=== PATIENT | male | born 1955 | race Caucasian/White ===

== ENCOUNTER 2020-05-23 06:22 | Day surgery (SDC) | payer OTHER, BC ==
[~2020-05-23] VITALS: Ht 180.3 cm; Wt 83.4 kg
[~2020-05-23 06:22] MED LIST: OMEP20ER PO
--- NOTE | 2020-05-23 06:42 | NUR ---
History, Chart, Medications and Allergies reviewed before start of procedure. Patient states he has not had anything to eat or drink since midnight. , Belén, here with patient.
--- NOTE | 2020-05-23 08:42 | NUR ---
0835- VSS. NO C/O. AT BEDSIDE. CLEAR OCCLUSIVE DRESSING OVER GAUZE AND STERI STRIPS DRSG TO RIGHT UPPER BACK CLEAN, DRY AND INTACT WITH NO VISIBLE DRAINAGE, SWELLING OR ERYTHEMA NOTED. TOLERATING PO FLUIDS. Discharge instructions reviewed with patient. Patient verbalizes understanding. Copy given to patient to take home. to drive home.
== END 2020-05-23 08:45 | disposition home or self-care (01) ==
LOC: ORSCMMR 06:22 → ORD 07:30 → ORSCMMR 07:30
PROVIDERS: Surgery
PROC: 0JB70ZZ Excision of Back Subcutaneous Tissue and Fascia, Open Approach (ICD-10-PCS; principal; 2020-05-23 07:30)
DX: R22.2 Localized swelling, mass and lump, trunk (principal); I10 Essential (primary) hypertension; Z79.899 Other long term (current) drug therapy
CPT/HCPCS: 88304; J0690; J7120

== ENCOUNTER 2020-09-23 11:03 | Day surgery (SDC) | payer MEDICARE ==
[~2020-09-23] VITALS: Ht 180.3 cm; Wt 83.0 kg
[2020-09-23] MEDS ORDERED: ASPI81CH PO (11:33)
[2020-09-23] MEDS ORDERED: ATOR20 PO (11:33)
[2020-09-23] MEDS ORDERED: METO25 PO (11:34)
[2020-09-23] MEDS ORDERED: OMEP20ER PO (11:35)
--- NOTE | 2020-09-23 14:45 | NUR ---
pt arrived to [facility] 6 via bed, awake a/ox3, pleasant and cooperative with care, states he feels good, tr band site in place to right wrist, some blood there with hand off, but just a small amount and not actively bleeding, no bruising noted, v.s. stable. oriented to room layout and call system call light in reach.
--- NOTE | 2020-09-23 18:32 | NUR ---
at second check there was some bleeding, added 2 mls of air, bleeding stopped, will continue to monitor, v.s. have remained stable. no c.p. reported. Dr. Garnica in to see him, will discharge in am. call light in reach.
--- NOTE | 2020-09-24 05:42 | NUR ---
SHIFT SUMMARY PT A&O X 4; PLEASANT & COMPLIANT W/ CARE; VSS; DENIES CHEST PAIN; O2 SATS >93 ON RA; TR BAND REOMVED FROM R RADIAL SITE; APPROXIMATELY @ 2330; SMALL AMOUNT OF BLEEDING NOTED; CLEANED AND TEGADERM PLACED; ARM BOARD IN PLACE TO RESTRICT MOVEMENT; DIGITS WARM TO TOUCH W/ FULL ROM; PT EDUCATED ON NOT USING ARM; PT INDEPENDENT IN ROOM FOR BRP; NO DISTRESS NOTED T/O SHIFT; CALL LIGHT IN REACH; BED IN LOWEST POSITION; WILL CONTINUE TO MONITOR CLOSELY UNTIL HAND OFF TO DAY SHIFT RN.
--- NOTE | 2020-09-24 07:42 | NUR ---
ASSUMED CARE: PT RESTING IN BED, NSR ON TELE, DENIES CP. RIGHT RADIAL SITE WITH MINIMAL OOZING, NO SIGN OF FURTHER BLEEDING, SWELLING OR HEMATOMA. AT BEDSIDE. NO ACUTE NEEDS OR CONCERNS.
[2020-09-24] MEDS ORDERED: TICA90TA PO (10:53)
--- NOTE | 2020-09-24 11:36 | NUR ---
DR CROOKS CAME AND CLEARED PT FOR DC. PT'S IV DC'D WNL, TELE REMOVED. REVIEWED ORDERS FOR NEW MEDS AND F/U APPOINTMENTS. PT AWARE TO SEEK MEDICAL TREATMENT FOR FURTHER BLEEDING FROM RADIAL SITE, SWELLING, NEW OR RETURNED CP, NAUSEA, DIZZINESS. PT'S AT BEDSIDE. DENIED FURTHER QUESTIONS OR CONCERNS.
== END 2020-09-24 11:29 | disposition home or self-care (01) ==
LOC: MHTC 11:03 → PCU 14:45 → MHTC 09-24 11:29
DX: I25.118 Atherosclerotic heart disease of native coronary artery with other forms of angina pectoris (principal); I10 Essential (primary) hypertension; K22.70 Barrett's esophagus without dysplasia; E78.00 Pure hypercholesterolemia, unspecified; Z86.39 Personal history of other endocrine, nutritional and metabolic disease; Z79.82 Long term (current) use of aspirin; Z79.899 Other long term (current) drug therapy; Z88.7 Allergy status to serum and vaccine
CPT/HCPCS: 76937; 85347; 92978; 93005; 93010; 93458; 99152; 99153; A9270; C1725; C1753; C1769; C1874; C1887; C1894; C9600; J1644; J1650; J2250; J3010; J7030; J7050; Q9967

== ENCOUNTER 2021-11-13 07:08 | Observation (INO) | payer MEDICARE ==
[~2021-11-13] VITALS: Ht 180.3 cm; Wt 80.5 kg
[~2021-11-13 07:08] MED LIST changes: +ASPI81CH PO; +ATOR20 PO; +METO25 PO; +TICA90TA PO
--- NOTE | 2021-11-13 13:21 | NUR ---
ASSUMPTION OF CARE PT ARRIVED FROM ASSISTANT NURSE MANAGER AT 1013 VIA WHEELCHAIR AND OCCOMPANIED BY TO RN, REPORT RECIEVED AT BEDSIDE AT THIS TIME. PT ON RA UPON ARRIVAL. PT ABLE TO TRANSFER SELF FROM WHEELCHAIR TO PCU BED. PT A/O X4. LUNG SOUNDS CLEAR THROUGHOUT. RIGHT RADIAL SITE C/D/I, NO BLEEDING OR HEMATOMA NOTED. VSS UPON ARRIVAL.
--- NOTE | 2021-11-13 18:02 | NUR ---
SHIFT SUMMARY A/O X4 AND COOPERATIVE OF CARE. VSS SINCE ARRIVAL TO UNIT WITH O2 SATS >95% ON RA. POST ANGIO WITH RIGHT RADIAL ACCESS, RADIAL SITE C/D/I. NO REPORT OF CHEST PAIN/PRESSURE SINCE ARRIVAL TO UNIT. NO REPORT OF SOB/DYSPNEA SINCE ARRIVAL TO UNIT. PT UP TO TOILET, TOLERATED WELL. SOME TENDERNESS REPORT AT PROCEDURE SITE, RELIEVED WHEN TR BAND PRESSURE BEGAN GETTING REDUCED. AT BEDSIDE. STENT CARD WITH .
[2021-11-14 03:37] LABS: Hematocrit 44.7 % (37.0-53.0); Mean Corpuscular HGB 28.5 pg (26.0-34.0); Mean Corpuscular HGB Conc 33.6 g/dL (31.5-36.5); Mean Corpuscular Volume 85 fL (80-100); Mean Platelet Volume 11.1 fL (9.1-12.4); Platelet Count 164 K/mm3 (150-400); RDW Coefficient Variation 13.4 % (11.7-14.2); Red Blood Cell Count 5.26 M/mm3 (4.30-5.90); White Blood Cell Count 4.46 K/mm3 (4.00-11.30)
[2021-11-14 04:01] LABS: Anion Gap 5 mmol/L (6-16); Blood Urea Nitrogen 17 mg/dL (8-24); Bun/Creatinine Ratio 18.7 (12.0-20.0); CO2, Blood 27 mmol/L (21-32); Calcium, Blood 9.1 mg/dL (8.5-10.1); Chloride, Blood 107 mmol/L (98-108); Creatinine, Blood 0.91 mg/dL (0.60-1.20); Glomerular Filtration Rate >60 (60-); Glucose, Blood 103 mg/dL (70-99); Potassium, Blood 4.1 mmol/L (3.5-5.5); Sodium, Blood 139 mmol/L (136-145)
--- NOTE | 2021-11-14 06:18 | NUR ---
SHIFT SUMMARY ASSUMED CARE OF PT AT 1900. PT IS A/OX4. HEART SOUNDS REGULAR. LUNG SOUNDS CLEAR. PT HAS NO NEW COMPLAINTS. PT WAS INDEPEDNT TO BATHOOM. R RADIAL SIGHT TENDER TO TOUCH BUT FREE OF REDNESS AND SWELLING.
--- NOTE | 2021-11-14 07:21 | NUR ---
ASSUMED CARE: PT RESTING IN BED BUT AWAKE AND TALKING TO STAFF. RIGHT RADIAL SITE WITH SMALL KNOT NOTED BENEATH PUNCTURE. NIGHT RN STATES THIS IS UNCHANGED FROM EVENING. NSR ON TELE, DENIES CHEST PAIN. NO ACUTE NEEDS AT THIS TIME.
--- NOTE | 2021-11-14 10:55 | NUR ---
PT'S AT BEDSIDE AND ASKED ABOUT ECHO. STATED THAT SHE AND DR VICTORIA HAD DISCUSSION ABOUT ORDERING ONE. NO ORDERS FOUND. CALL TO DR VICTORIA WHO INSTRUCTED TO ORDER ONE NOW AND THEN SHE WOULD REVIEW IT WHEN AVAILABLE. PT AND FAMILY AWARE
--- NOTE | 2021-11-14 11:33 | NUR ---
PIT AND AUXILIARIES SUPERVISOR AT BEDSIDE
--- NOTE | 2021-11-14 13:14 | NUR ---
DISCUSSED DISCHARGE INSTRUCTIONS WITH PT AND , IV REMOVED WNL. INSTRUCTED ON SAFETY PRECAUTIONS OF RADIAL SITE. DR BUITRAGO CAME TO SEE PT AND INSTRUCTED THEM TO WAIT FOR MRI. PT ESCORTED OUT VIA WHEEL CHAIR BY HOSPITAL STAFF
== END 2021-11-14 12:56 | disposition home or self-care (01) ==
LOC: MHTC 07:08 → PCU 10:21 → MHTC 12:05 → PCU 12:05
PROVIDERS: ADMIT Internal Medicine Interventional Cardiology
DX: I25.118 Atherosclerotic heart disease of native coronary artery with other forms of angina pectoris (principal); I10 Essential (primary) hypertension; R94.39 Abnormal result of other cardiovascular function study; E78.5 Hyperlipidemia, unspecified
CPT/HCPCS: 36415; 76937; 80048; 85027; 85347; 93306; 93454; 94762; 96372; 99152; 99153; A9270; C1725; C1769; C1874; C1887; C1894; C9600; G0378; J1644; J2250; J3010; J7030; J7050; Q9967

== ENCOUNTER 2024-11-26 17:48 | Emergency (ER) | payer MEDICARE ==
[~2024-11-26] VITALS: Ht 180.3 cm; Wt 79.4 kg
[2024-11-26 18:37] VITALS: BP 149/99
[2024-11-26 19:13] LABS: BASOPHILS ABSOLUTE AUTO 0.06 K/mm3 (0.00-0.23); BASOPHILS PERCENT AUTO 1 % (0-2); EOSINOPHILS PERCENT AUTO 4 % (0-6); Hematocrit 50.6 % (37.0-53.0); Hemoglobin 17.3 g/dL (13.5-17.5); IMMATURE GRAN ABSOLUTE AUTO 0.01 K/mm3 (0.00-0.10); IMMATURE GRAN PERCENT AUTO 0 % (0-1); LYMPHOCYTES ABSOLUTE AUTO 1.41 K/mm3 (0.84-5.20); LYMPHOCYTES PERCENT AUTO 25 % (21-46); MONOCYTES ABSOLUTE AUTO 0.49 K/mm3 (0.16-1.47); MONOCYTES PERCENT AUTO 9 % (4-13); Mean Corpuscular HGB 28.9 pg (26.0-34.0); Mean Corpuscular HGB Conc 34.2 g/dL (31.5-36.5); Mean Corpuscular Volume 85 fL (80-100); NEUTROPHILS ABSOLUTE AUTO 3.55 K/mm3 (1.96-9.15); NEUTROPHILS PERCENT AUTO 62 % (41-73); Platelet Count 205 K/mm3 (150-400); RDW Coefficient Variation 14.3 % (11.7-14.2); RDW Standard Deviation 43.8 fL (35.1-46.3); Red Blood Cell Count 5.99 M/mm3 (4.30-5.90); White Blood Cell Count 5.72 K/mm3 (4.00-11.30)
[2024-11-26 19:29] LABS: Prothrombin Time Results 10.7 Sec (9.7-11.5)
[2024-11-26 20:11] LABS: Albumin, Blood 3.8 g/dL (3.4-5.0); Bilirubin, Total 0.5 mg/dL (0.1-1.0); Bun/Creatinine Ratio 16.6 (12.0-20.0); Calcium, Blood 9.8 mg/dL (8.5-10.1); Creatinine, Blood 0.96 mg/dL (0.60-1.20); Globulin, Blood 3.9 g/dL (2.2-4.0); Potassium, Blood 4.2 mmol/L (3.5-5.5); Total Protein, Blood 7.7 g/dL (6.4-8.2)
[2024-11-26] MEDS ORDERED: ELIQUIS5 M9 PO (21:04)
[2024-11-26] MEDS ORDERED: Apixaban 5 MG Tab PO ONE (21:05)
== END 2024-11-26 21:14 | disposition home or self-care (01) ==
LOC: ER 17:48
PROVIDERS: Student in an Organized Health Care Education/Training Program
DX: I82.442 Acute embolism and thrombosis of left tibial vein (principal); Z59.89 Other problems related to housing and economic circumstances; Z79.82 Long term (current) use of aspirin; Z79.899 Other long term (current) drug therapy; Z79.02 Long term (current) use of antithrombotics/antiplatelets
CPT/HCPCS: 80053; 85025; 85610; 85730; 93971; 99283; A9270

== ENCOUNTER → 2024-12-03 | Outpatient (CLI) | payer MEDICARE ==
[~2024-12-03] MED LIST changes: +ELIQUIS5 M9 PO
[2024-12-06 12:00] LABS: HOMOCYSTEINE,TOTAL 11 umol/L (0-15)
== END ==
LOC: LAB 21:59 → LAB SHORT 21:59
PROVIDERS: Hospitalist
DX: I25.118 Atherosclerotic heart disease of native coronary artery with other forms of angina pectoris (principal); I82.442 Acute embolism and thrombosis of left tibial vein
CPT/HCPCS: 83090; 84153